=== PATIENT | male | born 1985 | race Caucasian/White ===

== ENCOUNTER 2017-08-26 13:07 | Emergency (ER) | payer OTHER ==
--- NOTE | 2017-08-26 14:05 | RAD ---
LEFT SHOULDER 3 VIEWS: HISTORY: Shoulder injury with pain. FINDINGS: There is evidence of mild anterior shoulder dislocation/subluxation. Humeral head is subluxed anteri ross from the glenoid. AC joint is normally aligned. No fracture is identified. IMPRESSION: anterior dislocation/subluxation of the humeral head. POS: [facility]
== END 2017-08-26 14:05 ==
LOC: NAV ERS 13:07
DX: S43.005A Unspecified dislocation of left shoulder joint, initial encounter (principal); F32.9 Major depressive disorder, single episode, unspecified; Z79.899 Other long term (current) drug therapy; X50.9XXA Other and unspecified overexertion or strenuous movements or postures, initial encounter
CPT/HCPCS: 23650